=== PATIENT | male | born 1995 | race African-American/Black ===

== ENCOUNTER 2022-11-29 20:01 | Emergency (ER) | payer SELFPAY ==
[2022-11-29 20:12] VITALS: BP 141/89; PULSE 92; RESP 14; TEMP 36.6; O2SAT 97; BMI 22.1
[2022-11-29 21:00] LABS: Basophils % 0.2 %; Eosinophils # 0.1 10^3/uL (0.0-0.8); Eosinophils % 0.9 %; Hematocrit 39.5 % (37-53); Lymphocytes # 2.5 10^3/uL (0.8-4.8); Lymphocytes % 47.1 %; Mean Corpuscular HGB Conc 34.2 g/dL (30-55); Mean Corpuscular Hemoglobin 28.5 pg (27-33); Mean Corpuscular Volume 83.5 fl (82-101); Mean Platelet Volume 9.6 fL (7.4-10.4); Monocytes # 0.5 10^3/uL (0.2-0.9); Monocytes % 9.7 %; Neutrophils # 2.25 10^3/uL (1.8-7.7); Neutrophils % 41.9 %; Nucleated Red Blood Cells % 0 %; Platelet Count 261 10^3/cmm (157-399); Red Blood Count 4.73 10^6/uL (3.85-5.65); Red Cell Distribution Width 14.7 % (12.1-15.1); White Blood Count 5.37 10^3/uL (3.29-11.43)
[2022-11-29 21:07] LABS: Alanine Aminotransferase 51 U/L (0-41); Albumin Level 4.8 g/dL (3.5-5.2); Alkaline Phosphatase 68 U/L (40-130); Anion Gap 15.4 (5-19); Aspartate Amino Transferase 64 U/L (0-40); Blood Urea Nitrogen 15 mg/dL (6-20); Calcium 9.2 mg/dL (8.5-10.5); Carbon Dioxide 24 mmol/L (22-29); Chloride 104 mmol/L (98-107); Globulin 2.5 g/dL (1.3-4.6); Glomerular Filtration Rate 163.7 mL/min (90-130); Glucose 109 mg/dL (65-115); Osmolality Calculated 291 mOsm/kg (285-295); Potassium 3.4 mmol/L (3.5-5.1); Sodium 140 mmol/L (136-145); Total Bilirubin 0.7 mg/dL (0.15-1.2); Total Protein 7.3 g/dL (6.6-8.7)
--- NOTE | 2022-11-29 21:16 | W.ED.GENADLT ---
HPI - General Adult General: Chief complaint: General Medical Stated complaint: vomiting blood Time Seen by Provider: 11/29/22 20:15 History of Present Illness: 27-year-old -M[place]ese male presents emergency room with complaints of yellow sclera for the past few days. He also reveals significant alcohol abuse and his last alcohol use was today. She denies any nausea, vomiting or abdominal pain. And would like to check his liver for possible liver damage due to alcohol intake. Associated symptoms: Deny dyspnea or malaise Review of Systems General: Denies: 10 or more systems reviewed and unremarkable except in HPI and below Const: Denies: fever(s), chills, body aches, change in appetite, change in weight, fatigue, malaise or night sweats Eyes: Reports: yellow eyes; Denies: change in vision, blurry vision, blind spots, photophobia, eye discomfort, eye discharge, eye redness, dry eyes or increased production of tears Resp: Denies: dyspnea, productive cough, non-productive cough, wheezing, stridor, pain on inspiration, change in phlegm color, hemoptysis or chest congestion Physical Exam Const: COMMON NORMALS: patient oriented x3 HENMT: COMMON NORMALS: normocephalic, atraumatic, hearing grossly normal bilaterally, external ears normal, EAC's normal, TM's normal bilaterally, Normal external nose present, Normal nasal mucous membranes and turbinates present, moist oral mucous membranes, oropharynx normal, dentition normal and gingiva normal HEAD & SCALP: normocephalic and atraumatic NOSE: Normal external nose present and Normal nasal mucous membranes and turbinates present EXTERNAL EAR: Yes external ears normal EXTERNAL AUDITORY CANAL: EAC's normal TYMPANIC MEMBRANE: TM's normal bilaterally Eye: GENERAL EYE: appearance normal, both eyes and all related structures VISUAL ACUITY: Yes acuity normal ALIGNMENT: Yes alignment normal PERIORBITAL: periorbital findings normal CONJUNCTIVA: Yes other (Mild yellow sclera) SCLERA: scleral abnormal (Yellowish) Laterality of scleral abnormality: positive bilateral Neck/C-Spine: COMMON NORMALS: no JVD Chest: COMMONS NORMALS: normal inspection of the chest, normal palpation of entire chest wall, normal inspection of the breasts and normal palpation of the breasts Breast/axilla inspection: Yes normal inspection of the breasts BREAST/AXILLA PALPATION: Yes normal palpation of the breasts Resp: COMMON NORMALS: normal respiratory effort, No retractions, No use of accessory muscles, clear to auscultation bilaterally and percussion normal AUSCULTATION: clear to auscultation bilaterally PERCUSSION: percussion normal Cardio: COMMON NORMALS: no JVD, regular rate, regular rhythm, S1 normal heart sound present, S2 normal heart sound present, No gallops present (Cardio), No clicks present (Cardio), No murmurs present (Cardio), No rub (Cardio) and Peripheral pulses 2+ throughout RATE: regular rate RHYTHM: regular rhythm HEART SOUNDS: S1 normal heart sound present and S2 normal heart sound present PERIPHERAL PULSES: Peripheral pulses 2+ throughout GI: COMMON NORMALS: Normal to inspection, nondistended, normoactive bowel sounds present, Soft to palpation, non-tender, No hepatosplenomegaly present, no masses and no bruits PALPATION: Yes Soft to palpation and Yes No hepatosplenomegaly present Extremity: COMMON NORMALS: normal to inspection, full ROM, capillary refill normal, no joint enlargement, no clubbing, cyanosis or edema, no calf tenderness and no pedal edema Neuro: COMMON NORMALS: patient oriented x3, CN's II-XII intact bilaterally, moves all extremities, no focal motor deficits, no sensory deficits noted, deep tendon reflexes 2+ bilaterally and gait normal Skin: COMMON NORMALS: no rashes or lesions noted, no wounds, turgor normal, no jaundice, no petechiae and no mottling GENERAL SKIN EXAM: no rashes or lesions noted and turgor normal Course Vital Signs: Vital signs: Vital Signs Temperature 97.9 F 11/29/22 20:12 Pulse Rate 92 11/29/22 20:12 Respiratory Rate 14 11/29/22 20:12 Blood Pressure 141/89 11/29/22 20:12 Pulse Oximetry 97 11/29/22 20:12 Oxygen Delivery Me thod Room Air 11/29/22 20:12 [facility] - General Adult Medical Decision Making Patient made comfortable emergency room and had extensive work-up done. Patient was educated about alcohol abuse and the need to quit drinking excessively. Differential Diagnosis Liver cirrhosis, hepatitis, electrolyte abnormalities Lab Data 11/29/22 20:35 11/29/22 20:35 Laboratory Results WBC 5.37 10^3/uL (3.29-11.43) 11/29/22 20:35 RBC 4.73 10^6/uL (3.85-5.65) 11/29/22 20:35 Hgb 13.50 g/dL (11.27-16.99) 11/29/22 20:35 Hct 39.5 % (37-53) 11/29/22 20:35 MCV 83.5 fl (82-101) 11/29/22 20:35 MCH 28.5 pg (27-33) 11/29/22 20:35 MCHC 34.2 g/dL (30-55) 11/29/22 20:35 RDW 14.7 % (12.1-15.1) 11/29/22 20:35 Plt Count 261 10^3/cmm (157-399) 11/29/22 20:35 MPV 9.6 fL (7.4-10.4) 11/29/22 20:35 Neut % (Auto) 41.9 % 11/29/22 20:35 Lymph % (Auto) 47.1 % 11/29/22 20:35 [place] % (Auto) 9.7 % 11/29/22 20:35 Eos % (Auto) 0.9 % 11/29/22 20:35 Baso % (Auto) 0.2 % 11/29/22 20:35 Neut # (Auto) 2.25 10^3/uL (1.8-7.7) 11/29/22 20:35 Lymph # (Auto) 2.5 10^3/uL (0.8-4.8) 11/29/22 20:35 [place] # (Auto) 0.5 10^3/uL (0.2-0.9) 11/29/22 20:35 Eos # (Auto) 0.1 10^3/uL (0.0-0.8) 11/29/22 20:35 Baso # (Auto) 0.0 10^3/uL (0.0-0.1) 11/29/22 20:35 Nucleated RBC % (auto) 0 % 11/29/22 20:35 Nucleated RBCs # 0.0 /100WBC 11/29/22 20:35 Sodium 140 mmol/L (136-145) 11/29/22 20:35 Potassium 3.4 mmol/L (3.5-5.1) L 11/29/22 20:35 Chloride 104 mmol/L (98-107) 11/29/22 20:35 Carbon Dioxide 24 mmol/L (22-29) 11/29/22 20:35 Anion Gap 15.4 (5-19) 11/29/22 20:35 BUN 15 mg/dL (6-20) 11/29/22 20:35 Creatinine 0.7 mg/dL (0.7-1.2) 11/29/22 20:35 GFR Calculation 163.7 mL/min (90-130) H 11/29/22 20:35 Glucose 109 mg/dL (65-115) 11/29/22 20:35 Calculated Osmolality 291 mOsm/kg (285-295) 11/29/22 20:35 Calcium 9.2 mg/dL (8.5-10.5) 11/29/22 20:35 Total Bilirubin 0.7 mg/dL (0.15-1.2) 11/29/22 20:35 AST 64 U/L (0-40) H 11/29/22 20:35 ALT 51 U/L (0-41) H 11/29/22 20:35 Alkaline Phosphatase 68 U/L (40-130) 11/29/22 20:35 Total Protein 7.3 g/dL (6.6-8.7) 11/29/22 20:35 Albumin 4.8 g/dL (3.5-5.2) 11/29/22 20:35 Globulin 2.5 g/dL (1.3-4.6) 11/29/22 20:35 No radiology studies performed this visit Discharge Plan Discharge Patient Disposition: Home Clinical Impression: Elevated liver enzymes, Alcohol abuse Condition: Stable Discharge Orders: Discharge ED (Routine); Ordered 11/29/22 Ordered By: Megan Rouse Discharge Diet: Advance as tolerated Discharge Activity: Resume usual activity Patient Instructions: Opioid Safety, Pain Management Stand Alone Forms: Work/School Release Coding Level of Care Code ED Knitting Teacher for Wilfredo Madrigal
== END 2022-11-29 21:43 | disposition home or self-care (01) ==
PROVIDERS: Emergency Provider Family Medicine
DX: F10.10 Alcohol abuse, uncomplicated (principal); R74.8 Abnormal levels of other serum enzymes
CPT/HCPCS: 80053; 85025; 99283

== ENCOUNTER 2023-04-14 20:28 | Emergency (ER) | payer SELFPAY ==
[2023-04-14 20:29] VITALS: BP 149/84; PULSE 98; RESP 15; TEMP 36.4; O2SAT 99
--- NOTE | 2023-04-14 21:46 | W.ED.EXTPRO ---
HPI - Extremity Problem General: Chief complaint: Extremity Problem,Nontraumatic Stated complaint: bilateral feet pain Time Seen by Provider: 04/14/23 21:46 History of Present Illness: 28-year-old male patient comes in today with bilateral feet pain. Patient appears nontoxic. Patient reports worsening symptoms since starting new job. Review of Systems General: Reports: 10 or more systems reviewed and unremarkable except in HPI and below Musc: Reports: extremity pain Physical Exam Const: COMMON NORMALS: alert HENMT: COMMON NORMALS: normocephalic HEAD & SCALP: normocephalic Neck/C-Spine: COMMON NORMALS: full ROM Resp: COMMON NORMALS: normal respiratory effort and clear to auscultation bilaterally AUSCULTATION: clear to auscultation bilaterally Cardio: COMMON NORMALS: regular rate and regular rhythm RATE: regular rate RHYTHM: regular rhythm GI: COMMON NORMALS: Soft to palpation PALPATION: Yes Soft to palpation Extremity: COMMON NORMALS: normal to inspection Neuro: SENSORIUM/ORIENTATION: Yes alert Skin: NARRATIVE SKIN EXAM: Bilateral feet have corns and calluses multiple ongoing. Patient also has noticeable hammertoes worse on the left than the right Course Vital Signs: Vital signs: Vital Signs Temperature 97.5 F L 04/14/23 20:29 Pulse Rate 98 04/14/23 20:29 Respiratory Rate 15 04/14/23 20:29 Blood Pressure 149/84 04/14/23 20:29 Pulse Oximetry 99 04/14/23 20:29 Oxygen Delivery Me thod Room Air 04/14/23 20:29 MDM - Extremity (Nontraumatic) Medical Decision Making 28-year-old male patient comes in today bilateral feet pain. On exam patient has significant corns and calluses to both feet. Patient also has some hammertoes. Reviewed exam with patient with recommendations for treatment and follow-up. Differential diagnoses includes not limited to plantars wart, corn/callus, hammertoe, plantar fasciitis. No radiology studies performed this visit Discharge Plan Discharge Patient Disposition: Home Clinical Impression: Callus of foot Hallux hammertoe Qualifiers: Laterality: unspecified laterality Qualified Code(s): M20.30 - Hallux varus (acquired), unspecified foot Condition: Stable Discharge Orders: Discharge ED (Routine); Ordered 04/14/23 Ordered By: Khalif Martinez Discharge Diet: Usual diet Discharge Activity: Increase activity as tolerated Patient Instructions: Calluses and Corns Activity Restrictions/Additional Instructions: Use good fitting shoes, use foam pads to protect bony prominences, use good emollient lotions and Vaseline to helps soften hard calluses. Follow-up with podiatry. Coding Level of Care Code ED Cycle Director for Wilfredo Madrigal
[2023-04-14 22:14] VITALS: BP 149/84; PULSE 98; RESP 15; TEMP 36.4; O2SAT 99
--- NOTE | 2023-04-15 08:10 | DCPLANNER ---
Referral was sent to podiatry on 04/15/23 at 0810. Clinic to contact patient for appointment
== END 2023-04-14 22:14 | disposition home or self-care (01) ==
PROVIDERS: Emergency Provider Nurse Practitioner Family
DX: L84 Corns and callosities (principal); M20.30 Hallux varus (acquired), unspecified foot
CPT/HCPCS: 99282

== ENCOUNTER 2023-05-08 22:35 | Emergency (ER) | payer SELFPAY ==
[2023-05-08 22:40] VITALS: PULSE 94; RESP 20; TEMP 36.6; O2SAT 98; BMI 26.4
--- NOTE | 2023-05-08 23:16 | ED_ITS ---
HPI - Dental/Oral 2 General: Chief complaint: Dental/Oral Stated complaint: Mouth/Oral pain Time Seen by Provider: 05/08/23 22:43 History of Present Illness: Patient is a 28-year-old male that presents to the emergency department with right-sided dental pain. Onset of symptoms approximately 2 months ago but worsening this week. Patient is a fracture to with retained fragments present. Patient denies fever, chills, chest pain, shortness of breath, cough, congestion. Review of Systems 2 General: Reports: 10 or more systems reviewed and unremarkable except in HPI and below Physical Exam 2 Const: COMMON NORMALS: no acute distress, patient oriented x3 and alert G ENERAL APPEARANCE: cooperative ORIENTATION/CONSCIOUSNESS: Yes awake, Yes oriented to person, Yes oriented to place and Yes oriented to time HENMT: COMMON NORMALS: normocephalic and atraumatic HEAD & SCALP: n ormocephalic and atraumatic FACE & SINUS: normal facial exam MOUTH: Normal oral and palatal mucosa present TEETH & GINGIVA IMAGES: 1. Fractured tooth. Retained fragment THROAT: posterior oropharynx normal OTHER: Mild swelling but no drainable abscess Neck/C-Spine: COMMON NORMALS: full ROM GENERAL: Yes normal visual inspection Lymph: LYMPHATIC: no lymphadenopathy noted Chest: COMMONS NORMALS: normal inspection of the chest Breast/axilla inspection: Yes no chest deformity, asymmetry, normal contours, no nodules, masses, tenderness Resp: COMMON NORMALS: normal respiratory effort, No retractions and No use of accessory muscles EFFORT & INSPECTION: Yes able to speak in complete sentences and Yes symmetric chest movement Cardio: COMMON NORMALS: regular rate and Peripheral pulses 2+ throughout R ATE: regular rate PERIPHERAL PULSES: Peripheral pulses 2+ throughout GI: COMMON NORMALS: Normal to inspection, nondistended, normoactive bowel sounds present and non-tender INSPECTION: Yes normal to inspection RECTAL EXAM: Yes deferred Neuro: COMMON NORMALS: patient oriented x3 SENSORIUM/ORIENTATION: Yes alert, Yes oriented to person, Yes oriented to place and Yes oriented to time CRANIAL NERVES: Yes CN normal except as noted Psych: COMMON NORMALS: mental status grossly normal, Normal thought process present, cooperative, activity/motor behavior normal, denies homicidal ideation and denies suicidal ideation THOUGHT PROCESS: Normal thought process present Course 2 Vital Signs: Vital signs: Vital Signs Temperature 98 F 05/08/23 22:40 Pulse Rate 94 05/08/23 22:40 Respiratory Rate 20 H 05/08/23 22:40 Pulse Oximetry 98 05/08/23 22:40 MDM - Dental/Oral Medical Decision Making Patient was evaluated here in the emergency department Dental fracture dental pain. Pain has been intermittent for the last 2 months worse this week. I treated him here in the emergency department for dental infection with Augmentin. He also received Toradol for pain. He is going to discharge home with Augmentin prescription, Toradol prescription and a list of dental services here in [facility] No radiology studies performed this visit Discharge Plan Discharge Patient Disposition: Home Clinical Impression: Dental caries, Fracture of tooth, Toothache Condition: Stable Prescriptions: New ketorolac 10 mg tablet 10 mg PO Q8H PRN (Reason: pain) 5 Days Qty: 15 0RF amoxicillin-pot clavulanate 875-125 mg tablet 1 tab PO BID Qty: 14 0RF Discharge Orders: Discharge ED (Routine); Ordered 05/08/23 Ordered By: Pema Schwab Discharge Diet: Advance as tolerated Discharge Activity: Resume usual activity Patient Instructions: Dental Caries (Cavities), Dental Abscess (ED), Mouth Care (ED), Pain Management Activity Restrictions/Additional Instructions: Please follow-up with a dentist. List has been provided. Please take the antibiotics as prescribed I provided you with a pain medication called ketorolac. This is a medication similar to ibuprofen, naproxen, Advil. Please do not take any of these medications while taking the ketorolac. You may take Tylenol. This should help with pain as well. Coding Level of Care Code ED Ecommerce Marketing Specialist for Wilfredo Madrigal
[2023-05-08] MEDS: ketorolac 60 mg/2 mL INJ IM (23:24)
[2023-05-08] MEDS: amoxicillin-clav 875-125 mg Tablet 1 TAB PO (23:24)
[2023-05-08 23:32] VITALS: RESP 14
== END 2023-05-08 23:34 | disposition home or self-care (01) ==
PROVIDERS: Emergency Provider Nurse Practitioner
DX: K02.9 Dental caries, unspecified (principal); S02.5XXA Fracture of tooth (traumatic), initial encounter for closed fracture; X58.XXXA Exposure to other specified factors, initial encounter
CPT/HCPCS: 96372; 99284; J1885

== ENCOUNTER 2023-05-25 11:58 | Emergency (ER) | payer SELFPAY ==
[2023-05-25 12:20] VITALS: BP 168/91; PULSE 95; RESP 16; TEMP 36.9; O2SAT 100; BMI 20.8
--- NOTE | 2023-05-25 12:45 | ED_ITS ---
HPI - URI/Sore Throat General: Chief Complaint: Upper Respiratory Infection Stated Complaint: migraine, weakness Time Seen by Provider: 05/25/23 12:13 Source: patient Mode of arrival: ambulatory Limitations: no limitations History of Present Illness: Patient is a 28-year-old male to ED today for evaluation of head and nasal congestion. Patient states symptoms have been going on over the past 7 days or so. He states he has noticed thick yellow nasal discharge and states he sometimes has trouble breathing through his nares. He is reporting maxillary and frontal sinus pain/pressure. He has been treating at home with Ibuprofen as well as DayQuil with somewhat improvement of symptoms. He denies sore throat. He states a few days ago he also developed a cough that he attributes to his smoking. He has not been fevers. MD elicited complaint: nasal congestion and sinus pain Onset (ago): day(s) Consistency: constant Severity: moderate Description of mucous: yellow Able to tolerate fluids by mouth: Yes Exacerbating factors: nothing Relieving factors: OTC cold medicine Associated symptoms: Reports congestion, cough, headache(s) (reports head congestion), nasal congestion and sinus pain; Deny chills, chest pain, ear or mastoid pain, fever(s), nausea or vomiting Treatments prior to arrival: ibuprofen and cold medicine Review of Systems Const: Denies: fever(s), chills, body aches, fatigue or malaise ENMT: Reports: nasal discharge, nasal congestion and sinus pain; Denies: throat pain, enlarged tonsils, odynophagia, oral sores, ear or mastoid pain or ear discharge Card: Denies: chest pain Resp: Reports: non-productive cough; Denies: dyspnea or wheezing GI: Denies: nausea or vomiting Musc: Denies: neck pain, back pain, extremity pain or joint pain Skin/Breast: Denies: rash Neuro: Reports: headache(s) (reports head congestion); Denies: numbness in extremities, weakness in extremities, sensory changes or dizziness Physical Exam Const: COMMON NORMALS: no acute distress, average body habitus, patient oriented x3, no limitations, healthy appearing, alert and well nourished GENERAL APPEARANCE: cooperative ORIENTATION/CONSCIOUSNESS: Yes awake, Yes oriented to person, Yes oriented to place and Yes oriented to time HENMT: COMMON NORMALS: normocephalic, atraumatic, hearing grossly normal bilaterally, external ears normal, EAC's normal, TM's normal bilaterally, Normal external nose present, Normal nasal mucous membranes and turbinates present, moist oral mucous membranes and oropharynx normal HEAD & SCALP: normal to inspection, normocephalic and atraumatic FACE & SINUS: face symmetric and sinus tenderness frontal, ethmoid and maxillary NOSE: Normal external nose present and Normal nasal mucous membranes and turbinates present EXTERNAL EAR: Yes external ears normal EXTERNAL AUDITORY CANAL: EAC's normal TYMPANIC MEMBRANE: TM's normal bilaterally MOUTH: Normal oral and palatal mucosa present and lip normal THROAT: posterior oropharynx normal and tonsils normal Eye: GENERAL EYE: appearance normal, both eyes and all related structures Neck/C-Spine: COMMON NORMALS: full ROM, no lymphadenopathy, no meningeal signs and no JVD GENERAL: Yes normal visual inspection CERVICAL SPINE: Yes Paracervical muscle tenderness left, No Trapezius muscle tenderness and No Lhermitte's sign positive Resp: COMMON NORMALS: normal respiratory effort and clear to auscultation bilaterally AUSCULTATION: clear to auscultation bilaterally Cardio: COMMON NORMALS: no JVD, regular rate and regular rhythm RATE: regular rate RHYTHM: regular rhythm Neuro: ANGEL COMA SCALE: document GCS findings Angel coma scale eye opening: Spontaneous Angel coma scale verbal response: Orientated [place] coma scale motor response: Obey commands [place] coma scale total score: 15 COMMON NORMALS: patient oriented x3, CN's II-XII intact bilaterally, moves all extremities, no focal motor deficits, no sensory deficits noted and gait normal SENSORIUM/ORIENTATION: Yes alert, Yes oriented to person, Yes oriented to place and Yes oriented to time MENINGEAL SIGNS: Yes no meningeal signs Skin: COMMON NORMALS: no rashes or lesions noted GENERAL SKIN EXAM: no rashes or lesions noted Course Vital Signs: Vital signs: Vital Signs Temperature 98.4 F 05/25/23 12:20 Pulse Rate 95 05/25/23 12:20 Respiratory Rate 16 05/25/23 12:20 Blood Pressure 168/91 05/25/23 12:20 Pulse Oximetry 100 05/25/23 12:20 Oxygen Delivery Me thod Room Air 05/25/23 12:20 MDM - URI/Sore Throat Medical Decision Making Patient will be treated for a likely viral URI/sinusitis. Reassurance given that most of these are viral and do not require antibiotics. Return to ED precautions given. Otherwise he can follow-up with primary care in 1 to 2 weeks if symptoms do not seem to be improving. Differential Diagnosis Likely upper respiratory infection, sinusitis, viral infection, bronchitis and pharyngitis No radiology studies performed this visit Discharge Plan Discharge Patient Disposition: Home Clinical Impression: Sinusitis Condition: Stable Prescriptions: New Sudafed 12 Hour 120 mg tablet extended release 120 mg PO BID PRN (Reason: nasal congestion) Qty: 14 0RF Flonase Allergy Relief 50 mcg/actuation spray,suspension 1 spray intranasal Q12H PRN (Reason: nasal congestion) Qty: 16 0RF Rx Instructions: administer into each nostril No Action amoxicillin-pot clavulanate 875-125 mg tablet 1 tab PO BID Qty: 14 0RF Discharge Orders: Discharge ED (Routine); Ordered 05/25/23 Ordered By: Susana Hopkins Patient Instructions: Sinusitis (ED) Stand Alone Forms: Work/School Release Coding Level of Care Code ED Ruby On Rails Software Developer for Wilfredo Madrigal
== END 2023-05-25 12:56 | disposition home or self-care (01) ==
PROVIDERS: Emergency Provider Physician Assistant
DX: J32.9 Chronic sinusitis, unspecified (principal)
CPT/HCPCS: 99283

== ENCOUNTER 2023-09-07 14:43 | Emergency (ER) | payer SELFPAY ==
[2023-09-07 14:48] VITALS: BP 138/90; PULSE 90; RESP 18; TEMP 36.6; O2SAT 100
--- NOTE | 2023-09-07 14:54 | W.ED.HA ---
HPI - Headache General: Chief Complaint: Headache Stated Complaint: Pain in the head--like migraine Time Seen by Provider: 09/07/23 14:54 Source: patient Mode of arrival: ambulatory Limitations: no limitations History of Present Illness: Patient is a 28-year-old male who presents to the ED today with a complaint of intermittent pain to the back of his head. Patient overall is a very poor historian. He states sometimes when he lies flat he will have pain in the back of his head where it lies on the pillow. He states his girlfriend is a DIRECTOR OF WOMEN'S SERVICES and told him sometimes people can have fluid on their brains . Patient reportedly is a hypochondriac and states now he thinks this is the case and wants answers . He tells me he does not have headaches throughout the day. He has no neurologic complaints. No visual changes. He later questions whether his pain could be secondary to how he lies when he sleeps or his pillow. He states symptoms have been present at least 3 months . MD elicited complaint: other (head pain) Onset (ago): month(s) Location: occipital Severity: mild Exacerbating factors: other (only notices it after lying on down for long periods of time) Associated symptoms: Reports no associated symptoms; Deny confusion, fever(s), nausea or vomiting Treatments prior to arrival: none Review of Systems Const: Denies: fever(s) or change in appetite Eyes: Denies: change in vision, blurry vision, photophobia, floaters or seeing flashes GI: Denies: nausea or vomiting Musc: Denies: neck pain Neuro: Denies: headache(s), numbness in extremities, weakness in extremities, sensory changes, lack of coordination, difficulty walking, frequent falls, dizziness, vertigo, confusion, behavioral changes, Slurred speech present, difficulty communicating thoughts, seizure-like activity or involuntary movements Physical Exam Const: COMMON NORMALS: no acute distress, average body habitus, patient oriented x3, no limitations, healthy appearing, alert and well nourished HENMT: COMMON NORMALS: normocephalic and atraumatic HEAD & SCALP: normal to inspection, normocephalic and atraumatic Eye: COMMON NORMALS: Equal, round and reactive pupils present and EOMs intact bilaterally GENERAL EYE: appearance normal, both eyes and all related structures and normal light reflex VISUAL ACUITY: Yes acuity normal PUPIL: Yes Equal, round and reactive pupils present DIRECT OPHTHALMOSCOPY: Yes normal light reflex Neck/C-Spine: COMMON NORMALS: full ROM GENERAL: Yes normal visual inspection CERVICAL SPINE: Yes cervical ROM normal and No Cervical spine tenderness Neuro: ANGEL COMA SCALE: document GCS findings Angel coma scale eye opening: Spontaneous Angel coma scale verbal response: Orientated Angel coma scale motor response: Obey commands [place] coma scale total score: 15 COMMON NORMALS: patient oriented x3, CN's II-XII intact bilaterally, moves all extremities, no focal motor deficits, no sensory deficits noted and gait normal SENSORIUM/ORIENTATION: Yes alert Course Vital Signs: Vital signs: Vital Signs Temperature 97.9 F 09/07/23 14:48 Pulse Rate 90 09/07/23 14:48 Respiratory Rate 18 09/07/23 14:48 Blood Pressure 138/90 09/07/23 14:48 Pulse Oximetry 100 09/07/23 14:48 Oxygen Delivery Me thod Room Air 09/07/23 14:48 MDM - Headache Medical Decision Making Patient has absolutely no neurologic complaints. At this time I would have an extremely low suspicion for hydrocephalus or other emergent intracranial etiology. I recommend patient follow-up with his primary care provider. Will have case management set him up with an appointment for this. Return to ED precautions given. Medical Records I reviewed the patient's medical records. No radiology studies performed this visit Discharge Plan Discharge Patient Disposition: Home Clinical Impression: Head pain Qualifiers: Headache type: unspecified Headache chronicity pattern: episodic headache Intractability: not intractable Qualified Code(s): R51.9 - Headache, unspecified Condition: Stable Prescriptions: No Action amoxicillin-pot clavulanate 875-125 mg tablet 1 tab PO BID Qty: 14 0RF Sudafed 12 Hour 120 mg tablet extended release 120 mg PO BID PRN (Reason: nasal congestion) Qty: 14 0RF Flonase Allergy Relief 50 mcg/actuation spray,suspension 1 spray intranasal Q12H PRN (Reason: nasal congestion) Qty: 16 0RF Rx Instructions: administer into each nostril Discharge Orders: Discharge ED (Routine); Ordered 09/07/23 Ordered By: Susana Hopkins Activity Restrictions/Additional Instructions: As we discussed, case management should be contacting you to help set you up with a primary care follow-up appointment. 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
[2023-09-07 16:35] VITALS: BP 131/86; PULSE 84; RESP 16; TEMP 36.6; O2SAT 100
--- NOTE | 2023-09-09 07:59 | DCPLANNER ---
messaged wp fam med to est pcp and er f/u appt
== END 2023-09-07 16:26 | disposition home or self-care (01) ==
PROVIDERS: Emergency Provider Physician Assistant
DX: R51.9 Headache, unspecified (principal)
CPT/HCPCS: 99281